=== PATIENT | female | born 1980 ===

== ENCOUNTER 2017-07-25 06:00 | Day surgery (SDC) | payer OTHER | END 2017-07-25 10:40 | disposition home or self-care (01) | LOC: AMB-ENDOS 06:00 | DX: K64.2 Third degree hemorrhoids (principal); K92.1 Melena; Z12.11 Encounter for screening for malignant neoplasm of colon ==

== ENCOUNTER 2019-12-01 06:14 | Day surgery (SDC) | payer OTHER | END 2019-12-01 16:15 | disposition home or self-care (01) | LOC: CIR.AMB 06:14 → ADM 11:15 → CIR.AMB 16:15 | PROVIDERS: ATTEND Colon & Rectal Surgery | DX: K64.8 Other hemorrhoids (principal); K64.4 Residual hemorrhoidal skin tags; K62.0 Anal polyp ==